=== PATIENT | male | born 1980 | race Caucasian/White ===

== ENCOUNTER 2018-08-09 13:26 | Emergency (ER) | payer SELFPAY ==
[~2018-08-09] VITALS: Ht 177.8 cm; Wt 85.3 kg
[2018-08-09 13:47] VITALS: BP 143/87
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
--- NOTE | 2018-08-09 15:18 | NUR ---
PORTABLE X RAY AT BEDSIDE.
[2018-08-09 16:16] VITALS: BP 143/87
--- NOTE | 2018-08-09 16:16 | NUR ---
Patient discharged with v/s stable. Written and verbal after care instructions given and explained. Patient alert, oriented and verbalized understanding of instructions. Ambulatory with steady gait. All questions addressed prior to discharge. ID band removed. Patient advised to follow up with PMD. Rx of KEFLEX, IBUPROFEN given. Patient educated on indication of medication including possible reaction and side effects. Opportunity to ask questions provided and answered.
== END 2018-08-09 16:16 | disposition home or self-care (01) ==
LOC: MED 13:26
DX: L03.116 Cellulitis of left lower limb (principal)
CPT/HCPCS: 73590; 99283; Q0092